=== PATIENT | female | born 1965 | race Caucasian/White ===

== ENCOUNTER 2021-01-22 08:38 | Outpatient (REF) | payer SELFPAY ==
[2021-01-22 13:51] LABS: Hemoglobin A1C 5.4 % (<5.7)
[2021-01-22 14:00] LABS: Calculated LDL 229 mg/dL (<100); Cholesterol 298 mg/dL (<200); HDL Cholesterol 52 mg/dL (40-60); TSH 2.73 uIU/mL (0.36-3.74); Triglyceride 87 mg/dL (<150)
== END 2021-01-22 08:39 | disposition home or self-care (01) ==
LOC: NCHCN 08:38
PROVIDERS: Visit Provider Nurse Practitioner Family
DX: F41.8 Other specified anxiety disorders (principal); E78.5 Hyperlipidemia, unspecified; E04.9 Nontoxic goiter, unspecified; E66.9 Obesity, unspecified; Z13.1 Encounter for screening for diabetes mellitus
CPT/HCPCS: 80061; 83036; 84443

== ENCOUNTER 2021-05-12 14:47 | Outpatient (REF) | payer OTHER, SELFPAY ==
[2021-05-12 22:06] LABS: Calculated LDL 120 mg/dL (<100); Cholesterol 198 mg/dL (<200); HDL Cholesterol 59 mg/dL (40-60); Triglyceride 98 mg/dL (<150)
== END 2021-05-12 14:48 | disposition home or self-care (01) ==
LOC: NCHCN 14:47
PROVIDERS: Visit Provider Nurse Practitioner Family
DX: E78.5 Hyperlipidemia, unspecified (principal)
CPT/HCPCS: 80061

== ENCOUNTER 2021-05-19 15:06 | Outpatient (REF) | payer OTHER, SELFPAY ==
--- NOTE | 2021-05-19 13:15 | PAPFT_PTH ---
PATIENT: Keara De Santiago LOC: [facility] U#:[id number] AGE/SX: 55/F ROOM: RE05/19/[address]: Lucy Diaz : 1965 BED: DIS: 05/19/2021 SPEC #: [id number] RECD: 05/20/21 13:04 STATUS: SWATI REJohn #: [id number] SANDRO: 05/19/21 13:[address]: Lucy Hardy [facility] Cytology RECD BY: Letty Nichols ENTERED: 05/20/21 13:04 SP TYPE: PAPFT RENU DR: Unknown,Unknown Tissues: 1 - CX/ENDOCX FOR PAP SMEARS Procedures: PAP THIN PREP/[facility] Screening HPV DNA PROBE Comments: [id number]
== END 2021-05-19 15:07 | disposition home or self-care (01) ==
LOC: NCHCN 15:06
PROVIDERS: Visit Provider Nurse Practitioner Family
DX: Z12.4 Encounter for screening for malignant neoplasm of cervix (principal); Z11.51 Encounter for screening for human papillomavirus (HPV)
CPT/HCPCS: 88142; 87624